=== PATIENT | male | born 1960 | race Caucasian/White ===

== ENCOUNTER → 2023-08-12 08:07 | Outpatient (REF) | payer OTHER, SELFPAY | LOC: RCS 08:07 | PROVIDERS: ATTENDING PHYSICIAN Nurse Practitioner; FAMILY PHYSICIAN Family Medicine | DX: I48.91 Unspecified atrial fibrillation (principal); I42.0 Dilated cardiomyopathy | CPT/HCPCS: 93306 ==

== ENCOUNTER 2023-10-13 09:34 | Day surgery (SDC) | payer OTHER, SELFPAY ==
[2023-10-13 11:13] VITALS: BMI 24.8
== END 2023-10-13 11:43 | disposition home or self-care (01) ==
LOC: CATH 09:34
PROVIDERS: ATTENDING PHYSICIAN Internal Medicine Cardiovascular Disease; FAMILY PHYSICIAN Internal Medicine Geriatric Medicine
DX: I48.19 Other persistent atrial fibrillation (principal); I34.0 Nonrheumatic mitral (valve) insufficiency; I11.0 Hypertensive heart disease with heart failure; I50.22 Chronic systolic (congestive) heart failure; E03.9 Hypothyroidism, unspecified; Z79.01 Long term (current) use of anticoagulants
CPT/HCPCS: 92960; 93005

== ENCOUNTER → 2024-05-19 12:52 | Outpatient (REF) | payer MEDICARE, SELFPAY | LOC: RCS 12:52 | PROVIDERS: ATTENDING PHYSICIAN Nurse Practitioner; FAMILY PHYSICIAN Internal Medicine Geriatric Medicine | DX: I42.8 Other cardiomyopathies (principal) | CPT/HCPCS: 93306 ==

== ENCOUNTER → 2025-02-10 14:13 | Outpatient (REF) | payer SELFPAY | LOC: RAD 14:13 | PROVIDERS: ATTENDING PHYSICIAN Nurse Practitioner; FAMILY PHYSICIAN Internal Medicine Geriatric Medicine | DX: I25.10 Atherosclerotic heart disease of native coronary artery without angina pectoris (principal) | CPT/HCPCS: 75571 ==